=== PATIENT | female | born 1965 | race Caucasian/White ===

== ENCOUNTER → 2016-10-30 | Outpatient (CLI) | payer BC ==
[~2016-10-30] MED LIST: ALBUTEROL2.5 MG/NEB IN; ASPI-COR81 M1 PO; ASPIRIN EC81 MG PO; BUMETANIDE1 MG PO; CARISOPRODOL 3350 MG PO; CARVEDILOL 1212.5 MG PO; CIPROFLOXACIN500 MG PO; CLONAZEPAM 1MG T1 MG PO; CLONAZEPAM0.5 M1 PO; CLONAZEPAM1 M1 PO; COUMADIN 5MG TAB5 MG PO; COUMADIN3 MG PO; DILAUDID4 MG PO; ENDOCET 325 MG-1 TA1 PO; FIORICET 325 MG1 TAB PO; HYDROCODONE-APA1 TA2 PO; K-DUR 2020 MEQ PO; KEFLEX 500MG.500 MG PO; LASIX 20MG. TAB20 MG PO; LASIX 40MG. TAB40 MG PO; LEVAQUIN 750 M750 MG PO; LEVAQUIN500 MG PO; LISINOPRIL10 MG PO; LISINOPRIL2.5 MG PO; METHADONE10 MG PO; METHOCARBAMOL750 M1 PO; MICRO-K10 MEQ PO; NEURONTIN100 MG OR; NOVAPLUS L80 MG/0.8 SC; OMNICEF 300 MG300 MG PO; ONDANSETRON4 M1 SL; PERCOCET 325 MG1 TA4 PO; PERCOCET 5/3251 EACH PO; PERCOGESIC EXTR1 TAB PO; PHENERGAN 25MG.25 M1 PO; POTASSIUM CHLO20 ME2 PO; PREDNISONE 20MG20 MG PO; PREDNISONE20 MG PO; PREDNISONE50 MG PO; PREMARIN 0.60.625 MG PO; PREMARIN V0.625 MG/G VG; PROTONIX 40MG T40 MG PO; PROVENTIL0.09 MG/A1 IH; SIMVASTATIN40 MG PO; SOMA350 MG PO; VITAMIN D50000 IU PO; WARFARIN2 MG PO; ZITHROMAX Z-PA250 M1 PO; ZOFRAN ODT8 M1 PO; ZOFRAN4 MG PO
--- NOTE | 2016-10-30 14:56 | RADIOLOGY REPORT PS360 ---
CHEST(2 VIEWS-NOT PORTABLE) ORDERING PHYSICIAN : David Harrison MD PATIENT AGE: 51 years GENDER: Female INDICATION: chest symptoms FALL, LEFT RIB PAIN PROCEDURE: CHEST(2 VIEWS-NOT PORTABLE) COMPARISON: None available FINDINGS: Previous rib films showed fractures involving the left 7 , 8 , 9, 10 th ribs. Small left pleural effusion. No pneumothorax. Mild chronic changes bilaterally but no active disease otherwise. Heart sheldon and mediastinal structures satisfactory. IMPRESSION Left rib fractures involving left 7,, 8, 9, 10th ribs as seen on rib studies. Small left pleural effusion. No pneumothorax nor acute pulmonary findings otherwise
--- NOTE | 2016-10-30 14:58 | RADIOLOGY REPORT PS360 ---
[id number] VIEWS ORDERING PHYSICIAN : David Harrison MD PATIENT AGE: 51 years GENDER: Female INDICATION: FALL, LEFT RIB PAIN Left rib pain fell and shallower laterally left side 1 week ago COPD. TECHNIQUE: Oblique views left RIBS. AP chest including below diaphragm COMPARISON: PA and lateral chest from today FINDINGS Acute left seventh eighth ninth and 10th rib fractures. The appears to involve the lateral/anterior lateral aspect of these ribs. No prominent displacement. Only Slight cortical step-off most evident left eighth rib. No pneumothorax. Small left pleural effusion associated slight blunting left CP angle. . IMPRESSION Fractures of left, 7, 8, 9, 10th ribs Small left pleural effusion. No pneumothorax evident
== END ==
LOC: RAD 13:12
DX: R07.81 Pleurodynia (principal)

== ENCOUNTER → 2017-04-22 | Outpatient (CLI) | payer BC ==
[2017-04-22 13:48] LABS: AMPHETAMINES/METAMPHETAMINES NEGATIVE ng/mL (<1000)
[2017-04-27 03:36] LABS: Alprazolam Negative (Cutoff=100); Benzodiazepines Negative ng/mL (Cutoff=100); Clonazepam Negative (Cutoff=100); Flurazepam Negative (Cutoff=100); Lorazepam Negative (Cutoff=100); Midazolam Negative (Cutoff=100); Temazepam Negative (Cutoff=100); Triazolam Negative (Cutoff=100)
== END ==
LOC: LAB 13:22
PROVIDERS: Emergency Medicine
DX: Z79.899 Other long term (current) drug therapy (principal)
CPT/HCPCS: G0480

== ENCOUNTER 2017-05-04 10:59 | Emergency (ER) | payer BC ==
[~2017-05-04] VITALS: Ht 172.7 cm; Wt 84.4 kg
[2017-05-04 11:34] LABS: LYMPH % 32.9 % (10-50.0)
--- OUTSIDE RECORDS SUMMARY | 2017-05-04 11:36 | External Medical Summary Rpt ---
Author Author [facility] Organization [facility] Address Unknown Phone Unavailable Care Team Providers Care Sports Marketer Name Role Phone ANY, (REF) PCP [phone] Encounter [facility] [place] [id number] Date(s): 01/28/17 - 02/04/17 [facility] [address] [place] [address]- Discharge Disposition: OP Self Care or Home Attending Physician: JOVON SAAVEDRA MD-CAR Admitting Physician: JOVON SAAVEDRA MD-CAR Referring Physician: JOVON SAAVEDRA MD-CAR Reason for Visit CHEST PAIN, UNSPECIFIED Vital Signs No data available for this section Problem List Condition Effective Status Health Informant Dates Status Abnormal Active patient clotting(Con firmed) Chest Active patient pain(Confirm ed) Cholecystect Active patient shayna(Confirme d) COPD(Confirm Active patient ed) Ectopic Active patient (Co nfirmed) Hypertension Active patient (Confirmed) Myocardial Active patient infarction(C onfirmed) Peripheral Active patient vascular disease(Conf irmed) Pneumonia(Co Active patient nfirmed) Stent(Confir Active patient med) Tonsillectom Active patient y(Confirmed) Ulcer(Confir Active patient med) Allergies, Adverse Reactions, Alerts Substance Reaction Severity Status ampicillin Active celecoxib Active codeine Active dihydroergotamin Active e Imitrex Active naproxen Active penicillin V Active potassium penicillins Active prochlorperazine Active rofecoxib Active sulfamethoxazole Active sulfonamides Active tetracycline Active trimethoprim Active valdecoxib Active Medications albuterol1.25 mg, Nebulized Inhalation , Every 4 Hours, As Needed, as needed for wheezing, Refills: 0 furosemide (Lasix 40 mg oral tablet) See Instructions, 1 Tab Oral Daily prn, Refills: 0 methaDONE (methaDONE 10 mg oral tablet) See Instructions, 4 Tab Oral at 8am and 1400, and takes 5 tabs at HS, Refills: 0 simvastatin (simvastatin 40 mg oral tablet) 1 Tab, Oral, At Bedtime, Refills: 0 Results No data available for this section Immunizations No data available for this section Procedures No data available for this section Social History Social History Response Type Smoking Status Current some day smoker Assessment and Plan No data available for this section Hospital Discharge Instructions No data available for this section
--- OUTSIDE RECORDS SUMMARY | 2017-05-04 11:36 | External Medical Summary Rpt ---
Author Author [facility] Organization [facility] Address Unknown Phone Unavailable Care Team Providers Care Mixing Plant Operator Name Role Phone ANY, (REF) PCP [phone] [facility] [place] [id number] Date(s): 01/03/17 - 01/18/17 [facility] [address] [place] [address]- Discharge Disposition: OP Self Care or Home Attending Physician: JOVON SAAVEDRA MD-CAR Admitting Physician: JOVON SAAVEDRA MD-CAR Referring Physician: JOVON SAAVEDRA MD-CAR Reason for Visit R07.9 R06.02 Vital Signs No data available for this [...]
--- OUTSIDE RECORDS SUMMARY | 2017-05-04 11:36 | External Medical Summary Rpt ---
Author Author [facility] Organization [facility] Address Unknown Phone Unavailable Care Team Providers Care Stage Manager Name Role Phone ANY, (REF) PCP [phone] Encounter [facility] [place] [id number] Date(s): 01/28/17 - 02/04/17 [facility] [address] [place] [address]- Discharge Disposition: OP Self Care or Home [...]
--- OUTSIDE RECORDS SUMMARY | 2017-05-04 11:36 | External Medical Summary Rpt ---
Author Author [facility] Organization [facility] Address Unknown Phone Unavailable Care Team Providers Care Termite Control Technician Name Role Phone ANY, (REF) PCP [phone] Encounter [facility] [place] [id number] Date(s): 01/03/17 - 01/18/17 [facility] [address] [place] [address]- Discharge Disposition: OP Self Care or Home Attending Physician: JOVON SAAVEDRA MD-CAR Admitting Physician: JOVON SAAVEDRA MD-CAR Referring Physician: JOVON SAAVEDRA MD-CAR Reason for Visit R07.9 R06.02 Vital Signs No data available for this section Problem List Condition Effective Status Health Informant Dates Status Abnormal Active patient clotting(Con firmed) Chest Active patient pain(Confirm ed) Cholecystect Active patient sahyna(Confirme d) COPD(Confirm Active patient ed) Ectopic Active [...]
--- OUTSIDE RECORDS SUMMARY | 2017-05-04 11:38 | External Medical Summary Rpt ---
Author Author , [facility] Address Unknown Phone [email or web address] Care Team Providers Care Checking Department Supervisor Name Role Phone Isabela Foster MD, Unavailable Unavailable Isabela Salazar MD, Unavailable Unavailable Alona Salazar MD Purpose Continuity of Care Document - 09-07-2013 through 2016 Problems Code Diagnosis DOS Provider Status 782.3 789.01 789.07 [id number] [facility] E87.6 HYPOKALEMIA J18.9 PNEUMONIA, UNSPECIFIED ORGANISM J20.9 ACUTE BRONCHITIS, UNSPECIFIED J40 BRONCHITIS, NOT SPECIFIED ACUTE OR CHRONIC J44.1 CHRONIC OBSTRUCTIVE PULMONARY DISEASE W (ACUTE) EXACERBATIO N J45.909 UNSPECIFIED ASTHMA, UNCOMPLICAT ED R07.89 OTHER CHEST PAIN R10.11 RIGHT UPPER QUADRANT PAIN R11.10 VOMITING, UNSPECIFIED S63.501A UNSPECIFIED SPRAIN OF RIGHT WRIST, INITIAL ENCOUNTER S83.92XA SPRAIN OF UNSPECIFIED SITE OF LEFT KNEE, INITIAL ENCOUNTER Allergies, Adverse Reactions, Alerts Type Drug Allergy Adverse Reaction to Substance Substance Reaction Severity Penicillin Unknown Unknown SULFA (sulfonamide) Unknown Unknown Naproxen Unknown Unknown Tetracycline Unknown Unknown Ampicillin Unknown Unknown Codeine Unknown Unknown Prochlorperazine Unknown Unknown Penicillin V Unknown Unknown Trimethoprim Unknown Unknown Dihydroergotamine Unknown Unknown Sulfamethoxazole Unknown Unknown Ketorolac Unknown Unknown Sumatriptan Unknown Unknown Celecoxib Unknown Unknown Rofecoxib Unknown Unknown Valdecoxib Unknown Unknown Medications Na ND Rx Da Fi Fi Am Da Di Ph RX Ph St me C No te ll ll ou ys ag ar # ys at rm s nt no ma ic us Or Da si cy ia de te s n re d SO 00 12 0 No DI 40 -0 UM 97 1- Lo 98 20 ng CH 30 13 er LO 9 RI Ac DE ti ve 0. 9% SO ELENA TI ON Sa 63 12 0 No li 80 -0 ne 70 1- Lo 10 20 ng Fl 07 13 er us 5 h Ac 10 ti ML ve Sy ri ng e DI 00 12 0 No AZ 40 -0 EP 91 1- Lo AM 27 20 ng 33 13 er 10 2 Ac MG ti /2 ve ML CA RP UJ EC T IP 00 12 0 No RA 48 -0 T- 70 1- Lo AL 20 20 ng BU 10 13 er T 1 0. Ac 5- ti 3( ve 2. 5) MG /3 ML 66 12 0 No PI 55 -0 RI 30 1- Lo N 00 20 ng 32 10 13 er 5 1 MG Ac ti TA ve BL ET NI 00 12 0 No TR 07 -0 OS 10 1- Lo TA 41 20 ng T 81 13 er 0. 3 4 Ac MG ti ve TA BL ET SL LE 25 12 0 No VO 02 -0 FL 10 1- Lo OX 13 20 ng AC 28 13 er IN 3 Ac 75 ti 0 ve MG /1 50 ML -D 5W Vital Signs 09-09-2013 23:06 Name Value Interpretat Reference Comment ion Range Body 98.6 [degF] Temperature BP 111 mm[Hg] Diastolic BP Systolic 174 mm[Hg] Heart 118 /min Rate/Pulse O2% 98 % Respiratory 20 /min Rate 09-09-2013 19:50 Name Value Interpretat Reference Comment ion Range Body 98.6 [degF] Temperature 09-09-2013 17:59 Name Value Interpretat Reference Comment ion Range BP 79 mm[Hg] Diastolic BP Systolic 134 mm[Hg] Heart 141 /min Rate/Pulse Respiratory 24 /min Rate 09-09-2013 17:22 Name Value Interpretat Reference Comment ion Range O2% 98 % 09-07-2013 07:01 Name Value Interpretat Reference Comment ion Range BP 90 mm[Hg] Diastolic BP Systolic 130 mm[Hg] Heart 100 /min Rate/Pulse O2% 95 % Respiratory 20 /min Rate Results Labs Lab Lab Date Result Refere Interp Status Commen Order Detail nces retati t Range on Drugs identified in Urine by Screen method (04-22-2017 09:30) Ampheta NEGATIV <1000 complet mine 017 E ed [Presen 09:30 ce] in Urine by Screen method 11 POSITIV <50 Abnorma complet oxy 017 E l ed delta-9 09:30 tetrahy drocann abinol [Presen ce] in Unspeci fied specime n URINALYSIS/COMPLETE (09-09-2013 19:50) URINE YELLOW YELLOW complet COLOR 013 ed 19:50 URINE CLEAR CLEAR complet APPEARA 013 ed NCE 19:50 URINE NEGATIV NEG complet GLUCOSE 013 E ed - 19:50 DIPSTIC K URINE 1+ NEG complet BILIRUB 013 ed IN - 19:50 DIPSTIC K URINE TRACE NEG complet KETONE 013 mg/dL ed 19:50 URINE 1.025 1.005-1 complet SPECIFI 013 UNK .030 ed C 19:50 GRAVITY URINE TRACE-I NEG complet BLOOD 013 NTACT ed 19:50 URINE 6.0 UNK 5.0-8.5 complet PH 013 ed 19:50 URINE 2+ NEG complet PROTEIN 013 mg/dL ed - 19:50 DIPSTIC K URINE 0.2 NEG complet UROBILI 013 E.U./dL ed NOGEN - 19:50 DIPSTIC K URINE NEGATIV NEG complet NITRATE 013 E ed - 19:50 DIPSTIC K URINE NEGATIV NEG complet LEUK 013 E ed ESTERAS 19:50 E URINE 3-5 0 complet RBC 013 rbc/hpf ed 19:50 URINE 20-50 O complet WBC 013 wbc/hpf ed 19:50 URINE 10-20 NONE complet WHITE 013 #/lpf ed BLOOD 19:50 CELL CAST COMPREHENSIVE METABOLIC PANEL (09-09-2013 17:50) Glucose 183 74-106 complet 013 mg/dL ed Bld-mCn 17:50 c BUN 31 7-18 complet Bld-mCn 013 mg/dL ed c 17:50 Creat 1.1 0.6-1.0 complet SerPl-m 013 mg/dL ed Cnc 17:50 Creat 79 50-200 complet Cl 013 ML/MIN ed predict 17:50 ed SerPl C-G-vRa te GFR/BSA 53 59- complet .pred 013 ML/MIN ed SerPl 17:50 Schwart z-vRate Sodium 138 136-145 complet SerPl-s 013 mmoL/L ed Cnc 17:50 Potassi 3.4 3.5-5.1 complet um 013 mmoL/L ed SerPl-s 17:50 Cnc Chlorid 102 98-107 complet e 013 mmoL/L ed SerPl-s 17:50 Cnc CO2 21 21.0-32 complet SerPl-s 013 mmoL/L .0 ed Cnc 17:50 Calcium 9.3 8.5-10. complet 013 mg/dL 1 ed SerPl-m 17:50 Cnc Prot 8.8 6.4-8.2 complet SerPl-m 013 gm/dL ed Cnc 17:50 Albumin 3.4 3.4-5.0 complet 013 gm/dL ed SerPl-m 17:50 Cnc Globuli 5.4 1.3-3.2 complet n 013 gm/dL ed Ser-mCn 17:50 c Albumin 0.6 UNK 1.1-1.8 complet /Glob 013 ed SerPl-m 17:50 Rto Bilirub 0.7 0.2-1.0 complet 013 mg/dL ed SerPl-m 17:50 Cnc AST 25 U/L 15-37 complet SerPl-c 013 ed Cnc 17:50 ALT 28 U/L 30-65 complet SerPl-c 013 ed Cnc 17:50 ALP 146 U/L 50-136 complet SerPl-c 013 ed Cnc 17:50 TROPONIN I (09-09-2013 17:50) TROPONI 0.31 0.00-0. complet N I 013 ng/mL 06 ed 17:50 Ethanol Bld-mCnc (09-09-2013 17:50) Ethanol 0 mg/dL 0-99 complet 013 ed Bld-mCn 17:50 c CBC with AUTO DIFF (09-09-2013 17:50) WBC # 22.5 4.8-10. High complet Bld 013 K/MM3 8 alert ed Auto 17:50 RBC # 09-09- 4.84 4.2-5.4 complet Bld 013 M/mm3 ed Auto 17:50 Hgb 14.3 12.2-16 complet Bld-mCn 013 g/dL .2 ed c 17:50 Hct Fr 41.8 % 37.0-47 complet Bld 013 .0 ed 17:50 MCV RBC 86.3 fl 82.2-97 complet 013 .8 ed 17:50 MCH RBC 29.5 pg 27-31.2 complet Qn 013 ed Auto 17:50 MEAN 34.1 31.8-35 complet CORPUSC 013 g/dl .4 ed ULAR 17:50 HGB CONC RDW RBC 17.3 % 11.5-17 complet Auto 013 .5 ed 17:50 Platele 476 142-424 complet t Bld 013 K/mm3 ed Ql 17:50 Manual MEAN 7.9 fl 7.4-10. complet PLATELE 013 4 ed T 17:50 VOLUME Granulo 83.5 % 37.0-80 complet cytes 013 .0 ed Fr Bld 17:50 Auto LYMPH % 11.8 % 10-50.0 complet 013 ed 17:50 Monocyt 3.6 % 1.7-9.3 complet es Fr 013 ed Bld 17:50 Auto Eosinop 0.9 % 0.1-12. complet hil Fr 013 0 ed Bld 17:50 Auto Basophi 0.1 % 0.1-2.0 complet ls Fr 013 ed Bld 17:50 Auto Granulo 18.8 1.8-7.8 complet cytes # 013 K/mm3 ed Bld 17:50 Auto Lymphoc 2.7 0.7-4.5 complet ytes Fr 013 K/mm3 ed Bld 17:50 Auto Monocyt 0.8 0.1-1.0 complet es # 013 K/mm3 ed Bld 17:50 Auto Eosinop 0.2 0.0-0.4 complet hil # 013 K/mm3 ed Bld 17:50 Auto Basophi 0.0 0-0.2 complet ls # 013 K/MM3 ed Bld 17:50 Auto Procedures Procedure DOS Code Location Performer Comment APPLICATI 93.54 Isabela Abdi MD SPLINT Encounters Encounter Start End Date Code Location Performer Type Date Emergency AAKASH Harrison MD (ER) 3 17:40 3 23:10 [facility] Emergency AAKASH Foster MD (ER) 3 06:48 3 07:16 [facility]
--- OUTSIDE RECORDS SUMMARY | 2017-05-04 11:38 | External Medical Summary Rpt ---
Author Author , TE [facility] TE Address Unknown Phone [email or web address] Care Team Providers Care Paper Machine Operator Name Role Phone Isabela Foster MD, Unavailable Unavailable Isabela Salazar MD, Unavailable Unavailable Alona Salazar MD Purpose Continuity of Care Document - 09-07-2013 through 2016 Problems Code Diagnosis DOS Provider Status 782.3 789.01 789.07 [id number] [facility] E87.6 HYPOKALEMIA J18.9 PNEUMONIA, UNSPECIFIED ORGANISM J20.9 [...] Harrison MD (ER) 3 17:40 3 23:10 [facility] Emergency AAKASH Foster MD (ER) 3 06:48 3 07:16 [facility]
--- OUTSIDE RECORDS SUMMARY | 2017-05-04 11:39 | External Medical Summary Rpt ---
Author Author [facility] Organization [facility] Address Unknown Phone Unavailable Purpose Continuity of Care Document - through 2016
--- OUTSIDE RECORDS SUMMARY | 2017-05-04 11:39 | External Medical Summary Rpt ---
Author Author [facility], [facility] Organization [facility] [employer] Address Unknown Phone Unavailable Results Benzodiazepines Confirm, Urine Observa Value Referen Units Interpr Notes Date tion ce etation Range Benzodi Negativ Cutoff= ng/mL No No Apr 22 azepine e 100 informa informa 2017 s tion in tion in 9:30 AM [Presen source source ce] in data data Urine Alprazo Negativ Cutoff= No No No Apr 22 tobias e 100 informa informa informa 2016 [Presen tion in tion in tion in 9:30 AM ce] in source source source Urine data data data Clonaze Negativ Cutoff= No No No Apr 22 christine e 100 informa informa informa 2016 [Presen tion in tion in tion in 9:30 AM ce] in source source source Urine data data data Temazep Negativ Cutoff= No No No Apr 22 am e 100 informa informa informa 2016 [Presen tion in tion in tion in 9:30 AM ce] in source source source Urine data data data by Confirm method Triazol Negativ Cutoff= No No No Apr 22 am e 100 informa informa informa 2016 [Presen tion in tion in tion in 9:30 AM ce] in source source source Urine data data data Midazol Negativ Cutoff= No No No Apr 22 am e 100 informa informa informa 2016 [Presen tion in tion in tion in 9:30 AM ce] in source source source Urine data data data by Confirm method Nordiaz Negativ Cutoff= No No No Apr 22 epam e 100 informa informa informa 2016 [Presen tion in tion in tion in 9:30 AM ce] in source source source Urine data data data Please Comment . No No Drug-te Apr 22 Note: informa informa st 2017 tion in tion in results 9:30 AM source source should data data be interpr eted in the context of clinica linform ation. Patient metabol ic variabl es, specifi c drug medicinal chemist ry, andspec imen charact eristic s can affect test outcome . Technic nolanu ltation is availab le if a test result is inconsi stent with anexpec elisabet outcome . (email- alysa hoang [email or web address] or call [employer] [phone] )Drug brands, if listed herein, are tradema rks of their respect jeanie kinsey.Perf ormed at: - [facility] [id number] [place], [place] [id number]Lab Directo r: David Suero MD, Phone: [phone] Oxazepa Negativ Cutoff= No No No Apr 22 m e 100 informa informa informa 2016 [Presen tion in tion in tion in 9:30 AM ce] in source source source Urine data data data Fluraze Negativ Cutoff= No No No Apr 22 christine e 100 informa informa informa 2016 [Presen tion in tion in tion in 9:30 AM ce] in source source source Urine data data data Lorazep Negativ Cutoff= No No No Apr 22 am e 100 informa informa informa 2016 [Presen tion in tion in tion in 9:30 AM ce] in source source source Urine data data data Drugs identified in Urine by Screen method Observa Value Referen Units Interpr Notes Date tion ce etation Range Positive urine drug screen samples are stored for 7 days. Contact the Lab if confirmation of positives is needed. Ampheta NEGATIV <1000 ng/mL No No Apr 22 mine E informa informa 2016 [Presen tion in tion in 9:30 AM ce] in source source Urine data data by Screen method Barbitura <200 ng/mL No No Apr 22 lloyd informati informati 2016 9:30 [Mass/vol on in on in AM ume] in source source Urine by data data Screen method Benzodiaz 200 ng/mL ng/mL No No Apr 22 epines informati informati 2016 9:30 [Mass/vol on in on in AM ume] in source source Serum or data data Plasma by Screen method Cocaine <300 ng/g No No Apr 22 [Mass/vol informati informati 2017 9:30 ume] in on in on in AM Unspecifi source source ed data data specimen Methadone <300 ng/mL No No Apr 22 informati informati 2016 9:30 [Mass/vol on in on in AM ume] in source source Unspecifi data data ed specimen Opiates <300 ng/mL No No Apr 22 [Mass/vol informati informati 2017 9:30 ume] in on in on in AM Unspecifi source source ed data data specimen Phencycli <25 ng/mL No No Apr 14 dine informati informati 2017 9:30 [Mass/vol on in on in AM ume] in source source Unspecifi data data ed specimen 11-Hydr POSITIV <50 ng/mL Abnorma This is Apr 22 oxy E l an 2017 delta-9 UNCONFI 9:30 AM RMED tetrahy result. drocann This abinol result [Presen is for ce] in medical Unspeci purpose fied s specime and/or n treatme nt only. INR in Blood by Coagulation assay Observa Value Referen Units Interpr Notes Date tion ce etation Range INR in 0.9 - 1.1 No High Results Mar 24 Blood by informati sent to: 2017 9:30 Coagulati on in [place] AM on assay source Tyrell RIBERA 03/24/17 [id number] palomino Pharmackelsi t recommend ation for Warfarint herapy is: INR BY FINGERSTI CK IS 1.6 TODAY. PATIENTRE CENTLY STARTED SYMBICORT AND LEVALBUTE ROL. HER INR WASELEVAT ED AT HOME SO SHE HELD 3 DOSES. RECOMMEND CONTINUIN G3 MG DAILY AT THIS TIME. FOR DETAILED INFORMATI ON-PLEASE REVIEW PROGRESS NOTEI N THE ASSESSMEN TS AND ANTICOAGU LATION CLINIC SECTIONAN TICOAGULA TION CLINIC IN PCI/CLINI SILVER REVIEWIND ICATION INR RANGETHER APY FOR DVT, PE, ATRIAL FIB; 2.0 - 3.0PROPHY LAXIS FOR VTETHERAP Y FOR MECHANICA L HEART 2.5 - 3.5VALVE; PREVENTIO N OF SYSTEMICE MBOLISM SECONDARY TO AMI
--- OUTSIDE RECORDS SUMMARY | 2017-05-04 11:39 | External Medical Summary Rpt ---
Demographics Preferred Language Armenian Marital Status Unknown Sikh Affiliation Unknown Race Unknown Ethnic Group Unknown Author Author , BETH TIWARI Address Unknown Phone Immunization Unable to retrieve immunization data due to connection failure with Immunization Registry. Please try again later.
--- OUTSIDE RECORDS SUMMARY | 2017-05-04 11:39 | External Medical Summary Rpt ---
[...] metabol ic variabl es, specifi c drug lab pack chemist ry, andspec imen charact eristic s can affect test outcome . Technic nolanu ltation is availab le if a test result is inconsi stent with anexpec elisabet outcome . (email- alysa [email or web address] [email or web address] or call [employer] [phone] )Drug brands, if listed herein, are tradema rks of their respect jeanie kinsey.Perf ormed at: - [facility] [id number] [place], [place] [id number]Lab Directo r: David Suero MD, Phone: [phone] Oxazepa Negativ Cutoff= No No No Apr [...]
--- OUTSIDE RECORDS SUMMARY | 2017-05-04 11:39 | External Medical Summary Rpt ---
Demographics Preferred Language French Marital Status Unknown Religion Affiliation Unknown Race Unknown Ethnic Group Unknown Author Author , BETH TIWARI Address Unknown Phone Immunization Unable to retrieve immunization data due to connection failure with Immunization Registry. Please try again later.
[2017-05-04 11:54] LABS: URINE BILIRUBIN - DIPSTICK NEGATIVE (NEG); URINE BLOOD NEGATIVE (NEG)
[2017-05-04 12:01] LABS: URINE SQUAMOUS CELLS OCC #/hpf (0-5)
[2017-05-04 12:22] LABS: NEUTROPHILS 55 % (42-76)
--- NOTE | 2017-05-04 12:23 | Emergency Room Report ---
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 N Clinical Suspician of Infection? N Mental Status: 1 - Regular (Normal Baseline) Sepsis Risk:Low Sepsis Risk Have you (or family members/close friends) recently traveled outside the [place]? N If Yes, where/when: Have you had exposure to infectious disease within the past month? N TB? Other? Specify: Source patient, RN notes reviewed, family, RN/MD Exam Limitations no limitations Comment This is a 51-year-old female patient with known history of chronic pancreatitis arriving to the emergency room with upper abdominal pain, a, associated with fine tremors of her fingers. Patient has any recent travel or exposure to sick contacts. ALLERGIES Coded Allergies: metoclopramide (From REGLAN) (Severe, I-RASH 04/02/16) NSAIDS (Non-Steroidal Anti-Inflamma (Mild, 04/02/16) Penicillins (Mild, 04/02/16) Sulfa (Sulfonamide Antibiotics) (Mild, 04/02/16) Tetracyclines (Mild, 04/02/16) codeine (Mild, 04/02/16) ketorolac (From TORADOL) (Mild, 04/02/16) naproxen (Mild, 04/02/16) prochlorperazine (From COMPAZINE) (Mild, 04/02/16) rofecoxib (From VIOXX) (Mild, 04/02/16) Home Medications Active Scripts OXYCODONE HCL/ACETAMINOPHEN (Percocet 7.5-325 MG Tablet) 1 TAB PO QIDP PRN pain #120 TAB Prov: 10/13/15 Reported Medications ALBUTEROL (Proventil Hfa Inhaler) 2 PUFF IH Q6H PRN #1 CAN Lisinopril 10 MG PO DAILY #30 TAB Clonazepam (Clonazepam 0.5MG) 0.5 MG PO TIDP PRN ANXIETY Carvedilol (Carvedilol 12.5MG) 12.5 MG PO BID Gabapentin (Neurontin) 600 MG OR TID Potassium Chloride (K-Dur) 20 MEQ PO DAILYP PRN SUPPLEMENT #30 Ondansetron (Zofran Odt) 8 MG PO WARFARIN SOD (Coumadin) 3 MG PO DAILY Simvastatin (Simvastatin 40MG Tab) 80 MG PO QHS Aspirin (Aspi-Cor) 81 MG PO DAILY Pantoprazole Sodium (Protonix 40MG TAB) 40 MG PO DAILY Promethazine Hydrochloride (Phenergan 25MG Tab) 25 MG PO Q6HP PRN N/V ERGOCALCIFEROL (VITAMIN D2) (Vitamin D2) 50,000 IUNITS PO WEEKLY #4 Methocarbamol 750 MG PO TID #90 History Medical History General CAD? No Angina: No [place]: Yes Hypertension? Yes Hyperlipidemia? Yes CHF? No DVT? Yes PE? No COPD? Yes Asthma? Yes Anemia? No GERD? No Gastric ulcers? No GI Bleed? No Hernia? Yes Thyroid Problems? No Hypothyroidism? No CVA? No Seizures? No Diabetes? No Insulin Dependent: No Insulin Pump: No Home FSBS? No Renal Insuffiency? No End Stage Renal Disease? No UTI? Yes Stones? Yes BPH? No GB Disease: Yes Nephritic Syndrome? No Asplenia? No Hepatitis? No Sickle Cell Disease? No Arthritis? No Migraines? No Cataracts? No Glaucoma? No MRSA? No HIV? No TB? No Anxiety? Yes Depression? Yes Cancer? No More? 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/A Family History Family Hx Diabetes Yes CAD Yes Hypertension Yes Hyperlipidemia Yes Cancer Yes TB No Social History Smoking Hx Smoker: Current Every Day Smoker Tobacco: Yes Type Cigarettes Packs/day < 1 Pack Alcohol Alcohol: No Review of Systems All Other Systems Reviewed and Negative Gastrointestinal abdominal pain, nausea, vomiting Psychiatric/Neurological other (tremors of the fingers) Physical Exam Vital Signs Vital Signs Date Time Temp Pulse Resp B/P Pulse O2 O2 Flow FiO2 Ox Delivery Rate 05/04 1236 98.1 88 18 154/98 98 05/04 1143 88 18 98 05/04 1119 20 05/04 1102 98.1 84 18 160/109 98 General Appearance normal appearance, WD/WN, mild distress Respiratory Status Yes: trachea midline, chest symmetrical, non tender chest. No: respiratory distress. Lung Sounds bilateral: normal breath sounds, lungs clear. 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 No Comment Upon reevaluation patient appears making stable, clinically improving. Advised patient to force clear fluids, advance diet as tolerated, till pain free. Results/Orders Laboratory Tests 05/04/17 1140: Urine Color YELLOW, Urine Appearance CLEAR, Urine pH 6.0, Ur Specific [place] 1.015, Urine Protein NEGATIVE, Urine Ketones NEGATIVE, Urine Blood NEGATIVE, Urine Nitrate NEGATIVE, Urine Bilirubin NEGATIVE, Urine Urobilinogen 0.2, Ur Leukocyte Esterase NEGATIVE, Urine RBC NONE, Urine WBC NONE, Ur Squamous Epith Cells OCC, Urine Bacteria TRACE, Urine Glucose NEGATIVE 05/04/17 1110: Phosphorus 3.5, Magnesium 1.8 05/04/17 1110: Sodium 140, Potassium 4.4, Chloride 103, Carbon Dioxide 32, BUN 27 H, Creatinine 1.2 H, Estimated Creat Clear 75, Estimated GFR (MDRD) 48 L, Glucose 92, Calcium 8.7, Total Bilirubin 0.2, AST 13 L, ALT 23, Alkaline Phosphatase 98 , Total Protein 7.4, Albumin 3.3 L, Globulin 4.1 H, Albumin/Globulin Ratio 0.8 L, Amylase 40, Lipase 129, PT 13.5 H, INR 1.25 H, APTT 28.5, WBC 15.2 H, RBC 4.45, Hgb 13.4, Hct 41.8, MCV 94.0, RDW 15.3, Plt Count 263, MPV 7.4, Gran % 60.2, Gran # 9.1 H, Total Counted 100, Lymphocytes % 32.9, Monocytes % 5.0, Eosinophils % 1.5, Basophils % 0.4, Neutrophils 55, Lymphocytes (Manual) 35, Lymphocytes # 5.0 H, Monocytes (Manual) 8, Monocytes # 0.8, Eosinophils # 0.2, Eosinophils # (Manual) 2, Basophils # 0.1, Platelet Estimate MOD INCREASE, PUBS MCHC 32.2, MCH 30.2 Current Medication Orders Sig/Марина Start time Last Medication Dose Route Stop Time Status Admin Morphine Sulfate 0 .STK-MED ONE 05/04 111 DCr .ROUTE Ondansetron HCl 0 .STK-MED ONE 05/04 1117 DC .ROUTE Sodium Chloride 1,000 ML .STK-MED ONE 05/04 1117 DC IV Morphine Sulfate 4 MG ONCE ONE 05/04 1115 DCr 05/04 IV 05/04 1116 1119 Ondansetron HCl 4 MG ONCE ONE 05/04 1115 DC 05/04 IV 05/04 1116 1118 Sodium Chloride 1,000 ML .Q1H 05/04 1115 DCD 05/04 IV 05/04 1308 1118 Sodium Chloride 10 ML PRN PRN 05/04 1115 DCD IV 05/05 1108 Sodium Chloride 10 ML PRN PRN 05/04 1115 DCD IV 05/05 1108 Orders Procedure Date/time Status PHOSPHORUS 05/04 1146 Complete MAGNESIUM 05/04 1146 Complete PARTIAL THROMBOPLASTIN TIME 05/04 1125 Complete PROTHROMBIN TIME 05/04 1125 Complete DIFFERENTIAL-WBC 05/04 1110 Complete IV SALINE LOCK 05/04 1109 Active URINALYSIS/COMPLETE 05/04 1109 Complete LIPASE 05/04 1109 Complete COMPLETE METABOLIC PANEL 05/04 1109 Complete CBC WITH AUTO DIFF 05/04 1109 Complete AMYLASE 05/04 1109 Complete Departure Departure Time of Disposition 1221 Disposition DC Home or Self Care(routine) Clinical Impression Primary Impression: Chronic pancreatitis Qualifiers: Pancreatitis type: unspecified pancreatitis type Qualified Code: K86.1 - Other chronic pancreatitis Condition STABLE Referrals Hunter RIBERA,David Kennedy (Family) Patient Instructions Chronic Pancreatitis, Pancreatitis (Alternative Therapy) Additional Instructions Please remain on clear liquids till pain completely resolved, advance diet as tolerated. Avoid greasy meals, tehy will trigger more pancreatitis flare ups. Discharge Counseling Counseled pt/family regarding diagnosis, test results, medications/RX, home care, follow up needs Comment Please remain on clear liquids till pain completely resolved, advance diet as tolerated. Avoid greasy meals, tehy will trigger more pancreatitis flare ups. ED Critical Care Critical Care No at [id number]
[2017-05-04 12:36] VITALS: BP 154/98
[2017-05-04 13:05] LABS: HEMOGLOBIN 13.4 g/dL (12.2-16.2)
== END 2017-05-04 12:37 | disposition home or self-care (01) ==
LOC: ER 10:59
PROVIDERS: Emergency Medicine
DX: K86.1 Other chronic pancreatitis (principal); I10 Essential (primary) hypertension; E78.5 Hyperlipidemia, unspecified; Z88.2 Allergy status to sulfonamides; Z88.8 Allergy status to other drugs, medicaments and biological substances; Z79.82 Long term (current) use of aspirin; Z79.01 Long term (current) use of anticoagulants; Z79.899 Other long term (current) drug therapy
CPT/HCPCS: J2405

== ENCOUNTER 2017-07-01 17:14 | Observation (INO) | payer BC ==
[~2017-07-01] VITALS: Ht 172.7 cm; Wt 90.7 kg
[~2017-07-01 17:14] MED LIST changes: +CREON1 ECC PO; +PERCOCET1 TA1 PO
[2017-07-01 17:19] VITALS: BP 120/72
[2017-07-01 17:50] LABS: URINE BLOOD NEGATIVE (NEG)
--- NOTE | 2017-07-01 17:51 | Emergency Room Report ---
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 N Clinical Suspician of Infection? N Mental Status: 1 - Regular (Normal Baseline) Sepsis Risk:Low Sepsis Risk Have you (or family members/close friends) recently traveled outside the [place]? N If Yes, where/when: Have you had exposure to infectious disease within the past month? N TB? Other? Specify: Comment The patient complains of RIGHT sided flank pain that began today. She has had nausea and vomiting. Denies abdominal pain or diarrhea. Recent upper respiratory infection, otherwise has not been ill. She has chronic back pain for years, but this is distinctly different. Denies history of kidney stones. ALLERGIES Coded Allergies: metoclopramide (From REGLAN) (Severe, I-RASH 04/02/16) NSAIDS (Non-Steroidal Anti-Inflamma (Mild, 04/02/16) Penicillins (Mild, 04/02/16) Sulfa (Sulfonamide Antibiotics) (Mild, 04/02/16) Tetracyclines (Mild, 04/02/16) codeine (Mild, 04/02/16) ketorolac (From TORADOL) (Mild, 04/02/16) naproxen (Mild, 04/02/16) prochlorperazine (From COMPAZINE) (Mild, 04/02/16) rofecoxib (From VIOXX) (Mild, 04/02/16) Home Medications Reported Medications ALBUTEROL (Proventil Hfa Inhaler) 2 PUFF IH Q6H PRN #1 CAN Lisinopril 10 MG PO DAILY #30 TAB Carvedilol (Carvedilol 12.5MG) 12.5 MG PO BID Gabapentin (Neurontin) 600 MG OR TID Potassium Chloride (K-Dur) 20 MEQ PO DAILYP PRN SUPPLEMENT #30 Clonazepam (Clonazepam 0.5MG) 0.5 MG PO QID Ondansetron (Zofran Odt) 8 MG PO WARFARIN SOD (Coumadin) 3 MG PO DAILY OXYCODONE HCL/ACETAMINOPHEN (Percocet 10-325 MG Tablet) 1 TAB PO TID LIPASE/PROTEASE/AMYLASE (Creon Dr 12,000 Units Capsule) 2 ECC PO ACHS Simvastatin (Simvastatin 40MG Tab) 80 MG PO QHS Aspirin (Aspi-Cor) 81 MG PO DAILY Pantoprazole Sodium (Protonix 40MG TAB) 40 MG PO DAILY Promethazine Hydrochloride (Phenergan 25MG Tab) 25 MG PO Q6HP PRN N/V ERGOCALCIFEROL (VITAMIN D2) (Vitamin D2) 50,000 IUNITS PO WEEKLY #4 Methocarbamol 750 MG PO TID #90 History Medical History General CAD? No Angina: No [place]: Yes Hypertension? Yes Hyperlipidemia? Yes CHF? No DVT? Yes PE? No COPD? Yes Asthma? Yes Anemia? No GERD? No Gastric ulcers? No GI Bleed? No Hernia? Yes Thyroid Problems? No Hypothyroidism? No CVA? No Seizures? No Diabetes? No Insulin Dependent: No Insulin Pump: No Home FSBS? No Renal Insuffiency? No End Stage Renal Disease? No UTI? Yes Stones? Yes BPH? No GB Disease: Yes Nephritic Syndrome? No Asplenia? No Hepatitis? No Sickle Cell Disease? No Arthritis? No Migraines? No Cataracts? No Glaucoma? No MRSA? No HIV? No TB? No Anxiety? Yes Depression? Yes Cancer? No More? 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 Musculoskeletal back pain Physical Exam Vital Signs Vital Signs Date Time Temp Pulse Resp B/P Pulse O2 O2 Flow FiO2 Ox Delivery Rate 07/01 2005 84 20 122/77 91 07/01 1941 20 07/01 1809 20 07/01 1719 98.0 83 20 120/72 95 General Appearance mild distress Eye Exam - bilateral eye normal exam, bilateral eye PERRL, bilateral eye EOMI Ear, Nose, Throat hearing grossly normal, normal ENT inspection Neck normal inspection, non-tender, supple, full range of motion Respiratory Status Yes: trachea midline, chest symmetrical, non tender chest. No: respiratory distress. Lung Sounds bilateral: normal breath sounds, lungs clear. Cardiovascular normal exam, regular rate/rhythm, no peripheral edema, no gallop, no JVD, no murmur, no rub, normal peripheral pulses Peripheral Pulses Pulses normal Yes Gastrointestinal normal bowel sounds, soft, no organomegaly, no guarding, no rebound, tenderness (Minimal, diffuse) Back normal inspection, CVA tenderness (R) Extremities non-tender, normal range of motion, normal inspection Neurologic alert, normal exam, oriented x 3 Mental status normal mood/affect Skin intact, normal color, warm/dry Medical Decision Making LABS/Meds/Orders Pt receiving controlled substance in ED? Yes Jordy was queried for this patient? Yes Comment [id number] rxs. last rxs gabapentin on 06/22/17, clonazepam on 06/16/17, 90 percocet 10mg on 06/02/17. Results/Orders Laboratory Tests 07/01/17 1750: Amylase 28, Lipase 81 07/01/17 1750: Sodium 136, Potassium 4.0, Chloride 103, Carbon Dioxide 24, BUN 22 H, Creatinine 1.5 H, Estimated Creat Clear 64, Estimated GFR (MDRD) 37 L, Glucose 153 H, Calcium 9.1, Total Bilirubin 0.4, AST 10 L, ALT 19, Alkaline Phosphatase 131 H, Total Protein 8.2, Albumin 3.8, Globulin 4.4 H, Albumin/ Globulin Ratio 0.9 L, PT Pending, INR Pending, WBC 15.2 H, RBC 5.24, Hgb 16.0, Hct 47.5 H, MCV 90.7, RDW 14.6, Plt Count 345, MPV 7.3 L, Gran % 74.5, Gran # 11.3 H, Total Counted 100, Lymphocytes % 18.1, Monocytes % 5.6, Eosinophils % 1.3, Basophils % 0.4, Neutrophils 78 H, Lymphocytes (Manual) 15, Lymphocytes # 2.8, Monocytes (Manual) 5, Monocytes # 0.9, Eosinophils # 0.2, Eosinophils # ( Manual) 2, Basophils # 0.1, Platelet Estimate NORMAL, PUBS MCHC 34.0, MCH 30.8 07/01/171739: Urine Color DK YELLOW, Urine Appearance SL CLOUDY, Urine pH 5.0, Ur Specific [place] >= 1.030, Urine Protein 1+ H, Urine Ketones NEGATIVE, Urine Blood NEGATIVE, Urine Nitrate NEGATIVE, Urine Bilirubin 1+ H, Urine Urobilinogen 1.0, Ur Leukocyte Esterase NEGATIVE, Urine RBC 3-5, Urine WBC 3-5, Ur Squamous Epith Cells TNTC, Urine Bacteria 2+, Hyaline Casts 5-10, Urine Mucus 1+, Urine Glucose NEGATIVE Current Medication Orders Sig/Марина Start time Last Medication Dose Route Stop Time Status Admin Ketorolac 0 .STK-MED ONE 07/01 2012 DCr Tromethamine .ROUTE Hydromorphone HCl 1 MG ONCE ONE 07/01 1945 DCr 07/01 IV 07/01 194 194 Hydromorphone HCl 1 MG ONCE ONE 07/01 1815 DCr 07/01 IV 07/01 1816 1809 Ondansetron HCl 4 MG ONCE ONE 07/01 1815 CAN IV 07/01 181 Hydromorphone HCl 0 .STK-MED ONE 07/01 1805 DCr .ROUTE Ondansetron HCl 4 MG ONCE ONE 07/01 1800 DC 07/01 IV 07/01 1801 1801 Sodium Chloride 1,000 ML .Q1H1M 07/01 1800 DC 07/01 IV 07/01 1900 1801 Sodium Chloride 10 ML PRN PRN 07/01 1800 AC IV 07/02 1758 Ondansetron HCl 0 .STK-MED ONE 07/01 175 DC .ROUTE Sodium Chloride 1,000 ML .STK-MED ONE 07/01 1753 DC IV Sodium Chloride 10 ML PRN PRN 07/01 1745 AC IV 07/02 1740 Orders Procedure Date/time Status DIET-NOTHING BY MOUTH 07/02 B Active Decision to admit 07/[address] ABD & PELVIS W/O CONTRAST 07/[address] ABD/PELVIS REQ 07/01 1759 Active LIPASE 09/22 1759 Complete AMYLASE 07/[address] ABD/PELVIS REQ 07/01 175 Active DIFFERENTIAL-WBC 07/01 175 Complete IV SALINE LOCK 07/01 174 Active CULTURE, URINE 07/01 174 Active URINALYSIS/COMPLETE 07/01 174 Complete CBC WITH AUTO DIFF 07/01 174 Complete CHEM 12 PROFILE 07/01 174 Complete XRAY/CT/US XRAY/CT/US CT abdomen, pelvis Comment CT scan interpreted by ad radiologist. Faxed report received and reviewed: No acute findings. No evidence of urinary tract stone or obstruction. Moderate pneumobilia status post cholecystectomy and probable prior sphincterotomy. This is not an uncommon finding after these procedures however correlation with surgical history is recommended. Progress - 7:30 PM: Patient states no relief from pain medication. Discussed results. 8:00 PM: I have discussed the case with Dr. Harrison who agrees to admit the patient to the hospital. He saw the patient in the emergency department. He requests Levaquin. Departure Departure Disposition Still a Patient Clinical Impression Primary Impression: Right flank pain Secondary Impressions: Dehydration Vomiting Qualifiers: Vomiting type: unspecified Vomiting Intractability: intractable Nausea presence: with nausea Qualified Code: R11.2 - Nausea with vomiting, unspecified Condition STABLE Referrals Hunter RIBERA,David Kennedy (Family) ED Critical Care Critical Care No at 2028
[2017-07-01 17:58] LABS: URINE BILIRUBIN - DIPSTICK 1+ (NEG)
[2017-07-01 18:03] LABS: LYMPH # 2.8 K/mm3 (0.7-4.5); LYMPH % 18.1 % (10-50.0)
[2017-07-01 18:07] LABS: URINE SQUAMOUS CELLS TNTC #/hpf (0-5)
[2017-07-01 18:25] LABS: NEUTROPHILS 78 % (42-76)
[2017-07-01 20:36] VITALS: BP 120/74
--- NOTE | 2017-07-01 21:06 | HISTORY AND PHYSICAL REPORT ---
Demographics: Admit date: 07/01/17 Chief complaint: flank pain PRIMARY DIAGNOSIS: FLANK PAIN, NAUSEA Allergies: Coded Allergies: metoclopramide (From REGLAN) (Severe, I-RASH 04/02/16) NSAIDS (Non-Steroidal Anti-Inflamma (Mild, 04/02/16) Penicillins (Mild, 04/02/16) Sulfa (Sulfonamide Antibiotics) (Mild, 04/02/16) Tetracyclines (Mild, 04/02/16) codeine (Mild, 04/02/16) ketorolac (From TORADOL) (Mild, 04/02/16) naproxen (Mild, 04/02/16) prochlorperazine (From COMPAZINE) (Mild, 04/02/16) rofecoxib (From VIOXX) (Mild, 04/02/16) History of present illness: History of present illness: e patient complains of RIGHT sided flank pain that began today. She has had nausea and vomiting. Denies abdominal pain or diarrhea. Recent upper respiratory infection, otherwise has not been ill. She has chronic back pain for years, but this is distinctly different. Denies history of kidney stones.this fronm ed record and pt with progressive rt flank pain with no hematuria- pt was treated in the ed but had persistant vomiting and pain and abn labs and was admitted for pain meds and abx with ivf Past medical history: Family HX Family Hx Insignificant Yes Immunization HX DT/Tetanus 5-10 Years Ago Flu [id number] Pneumonia Unknown TB Test in last year No General CAD? No Angina: No [place]: Yes Hypertension? Yes Hyperlipidemia? Yes CHF? No DVT? Yes PE? No COPD? Yes Asthma? Yes Anemia? No GERD? No Gastric ulcers? No GI Bleed? No Hernia? Yes Thyroid Problems? No Hypothyroidism? No CVA? No Seizures? No Diabetes? No Insulin Dependent: No Insulin Pump: No Home FSBS? No Renal Insuffiency? No UTI? Yes Stones? Yes BPH? No GB Disease: Yes Nephritic Syndrome? No Asplenia? No Hepatitis? No Sickle Cell Disease? No Arthritis? No Migraines? No Cataracts? No Glaucoma? No MRSA? No HIV? No TB? No Anxiety? Yes Depression? Yes Cancer? No More? Yes Additional hx: ANTIPHOSPHOLIPID ANTIBODIES PANCREATITIS Past Surgical HX Previous Surgery?Y CHOLECTOMY EPTOPIC PREG HYSTERECTOMY FASCIOTOMY T&A VEIN GRAFT HEART CATH SHUNT PLACED VEIN GRAFT Current home meds: Reported Medications ALBUTEROL (Proventil Hfa Inhaler) 2 PUFF IH Q6H PRN #1 CAN Lisinopril 10 MG PO DAILY #30 TAB Carvedilol (Carvedilol 12.5MG) 12.5 MG PO BID Gabapentin (Neurontin) 600 MG OR TID Potassium Chloride (K-Dur) 20 MEQ PO DAILYP PRN SUPPLEMENT #30 Clonazepam (Clonazepam 0.5MG) 0.5 MG PO QID Ondansetron (Zofran Odt) 8 MG PO WARFARIN SOD (Coumadin) 3 MG PO DAILY OXYCODONE HCL/ACETAMINOPHEN (Percocet 10-325 MG Tablet) 1 TAB PO TID LIPASE/PROTEASE/AMYLASE (Creon Dr 12,000 Units Capsule) 2 ECC PO ACHS Simvastatin (Simvastatin 40MG Tab) 80 MG PO QHS Aspirin (Aspi-Cor) 81 MG PO DAILY Pantoprazole Sodium (Protonix 40MG TAB) 40 MG PO DAILY Promethazine Hydrochloride (Phenergan 25MG Tab) 25 MG PO Q6HP PRN N/V ERGOCALCIFEROL (VITAMIN D2) (Vitamin D2) 50,000 IUNITS PO WEEKLY #4 Methocarbamol 750 MG PO TID #90 Social Hx: Smoking HX Tobacco Yes Type Cigarettes Packs/day N/A Are you/the child exposed to second-hand smoke: No Alcohol Alcohol: No Hx of Drug Use Drug Use? No Patien't marital status is Patient's support system is good Review of systems: Constitutional see HPI, weakness. No: fever. Eyes No: drainage. Ears, Nose, Mouth, Throat No ear discharge, No epistaxis, No throat pain Respiratory No: cough, shortness of breath, wheezing. Cardiovascular No chest pain, No palpitations, No syncope Gastrointestinal/Abdominal see HPI, abdominal pain, No diarrhea, nausea, poor appetite, poor fluid intake, vomiting Genitourinary see HPI. No: dysuria, frequency, hesitancy, hematuria. Musculoskeletal see HPI, other. No: back pain, joint pain, joint swelling, neck pain. Skin No: rash. Neurological No: headache, seizure disorder. Psychiatric No: depressed. Exam: Lab data for last 24 hours: Laboratory Tests 07/01/171749: Amylase 28, Lipase 81 07/01/171749: Sodium 136, Potassium 4.0, Chloride 103, Carbon Dioxide 24, BUN 22 H, Creatinine 1.5 H, Estimated Creat Clear 64, Estimated GFR (MDRD) 37 L, Glucose 153 H, Calcium 9.1, Total Bilirubin 0.4, AST 10 L, ALT 19, Alkaline Phosphatase 131 H, Total Protein 8.2, Albumin 3.8, Globulin 4.4 H, Albumin/ Globulin Ratio 0.9 L, PT 11.2, INR 1.04, WBC 15.2 H, RBC 5.24, Hgb 16.0, Hct 47.5 H, MCV 90.7, RDW 14.6, Plt Count 345, MPV 7.3 L, Gran % 74.5, Gran # 11.3 H, Total Counted 100, Lymphocytes % 18.1, Monocytes % 5.6, Eosinophils % 1.3, Basophils % 0.4, Neutrophils 78 H, Lymphocytes (Manual) 15, Lymphocytes # 2.8, Monocytes (Manual) 5, Monocytes # 0.9, Eosinophils # 0.2, Eosinophils # (Manual) 2, Basophils # 0.1, Platelet Estimate NORMAL, PUBS MCHC 34.0, MCH 30.8 07/01/171739: Urine Color DK YELLOW, Urine Appearance SL CLOUDY, Urine pH 5.0, Ur Specific [place] >= 1.030, Urine Protein 1+ H, Urine Ketones NEGATIVE, Urine Blood NEGATIVE, Urine Nitrate NEGATIVE, Urine Bilirubin 1+ H, Urine Urobilinogen 1.0, Ur Leukocyte Esterase NEGATIVE, Urine RBC 3-5, Urine WBC 3-5, Ur Squamous Epith Cells TNTC, Urine Bacteria 2+, Hyaline Casts 5-10, Urine Mucus 1+, Urine Glucose NEGATIVE Microbiology 07/01 1740 URINE CC: Urine Culture - RECD Admission vital signs: 1ST Vital Signs Result Date Time Pulse Ox 95 07/01 1719 B/P 120/72 07/01 1719 Temp 98.0 07/01 1719 Pulse 83 07/01 1719 Resp 20 07/01 1719 O2 Delivery ROOM AIR 07/01 2036 Exam General appearance: active Eyes: anicteric, PERRLA ENT: dry mucous membranes Neck: no JVD Cardiovascular: regular rate & rhythm, murmur Respiratory: clear to auscultation, no respiratory distress ABD: soft, abnormal bowel sounds, tenderness Genitourinary: no dysuria, no hematuria Extremities: moves all Musculoskeletal: equal muscle strength Skin: dry 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 Right flank pain 2. Vomiting 3. Renal insufficiency 4. Leukocytosis Plan: will hydrate and iv abx and pain meds at 0504
[2017-07-01 21:30] VITALS: BP 118/76
[2017-07-02] VITALS (7 sets, daily range): BP systolic 101–128; BP diastolic 61–85
--- NOTE | 2017-07-02 06:34 | RADIOLOGY REPORT PS360 ---
CHEST(2 VIEWS-NOT PORTABLE) HISTORY: SOA ORDERING PHYSICIAN: David Harrison MD PATIENT AGE: 51 years COMPARISON: 10/30/2016 FINDINGS: The cardiomediastinal silhouette and pulmonary vascularity are within normal limits. The lungs are clear without infiltrates, suspicious nodules, or pleural effusions. No acute bony abnormalities. IMPRESSION: No change with no acute finding
[2017-07-02 06:58] LABS: LYMPH # 2.2 K/mm3 (0.7-4.5); LYMPH % 16.2 % (10-50.0)
--- NOTE | 2017-07-02 07:22 | RADIOLOGY REPORT PS360 ---
CT ABD PELVIS W/O CONTRAST CLINICAL INDICATION: Right flank pain FLANK PAIN ORDERING PHYSICIAN: David Harrison MD PATIENT AGE: 51 years COMPARISON: 05/29/2017 TECHNIQUE: Axial images obtained with sagittal and coronal reformats. PROCEDURE: Oral Contrast: None IV Contrast: None . FINDINGS: Lung bases are clear. There is pneumobilia. No focal liver lesion. Prior cholecystectomy. The spleen, adrenal glands, and pancreas are unremarkable. No renal calculi or hydronephrosis. No ureteral calculi. There is some cortical scarring involving the left kidney. The urinary bladder is decompressed. No obvious stone. Unremarkable appendix. No evidence of intestinal obstruction, free air, or diverticulitis. Prior hysterectomy. There is a tiny umbilical hernia containing fat. No obvious pelvic mass. No acute bony anomalies. Postsurgical changes in the left groin with small bilateral inguinal lymph nodes which appear stable IMPRESSION: 1. No change with no acute finding. 2. Status post cholecystectomy with pneumobilia as before 3. Other nonacute findings as described above
[2017-07-02 07:52] LABS: HEMOGLOBIN 13.9 g/dL (12.2-16.2)
--- NOTE | 2017-07-02 08:33 | ACUTE CARE PROGRESS NOTE (QUA) ---
Progress Notes Subjective Date 07/02/17 Time 0831 Note still with pain Patient/family reports: pain Nursing reports: no complaints Objective Findings Last VS-Temp:97.9 B/P:109/73 Pulse:81 Resp:20 SaO2:93 ROOM AIR Last weight lbs:200 oz:0 K.720 Method:Floor Scales Exam General appearance: alert, awake Eyes: anicteric, PERRLA ENT: dry mucous membranes Neck: no JVD Cardiovascular: regular rate & rhythm Respiratory: no respiratory distress ABD: soft Genitourinary: no hematuria Extremities: moves all Musculoskeletal: equal muscle strength Skin: dry Neuro: alert, still photographer II-XII nml as tested Reviewed: allergies, medications, vital signs, lab results, radiology report Assessment/Plan Problem List 1. Right flank pain 2. Vomiting 3. Renal insufficiency 4. Leukocytosis Patient condition Stable Plan: order additional tests This inpt stay is expected to cross 2 MNs from start of care Yes Comments: pt with persistant rt flank pain Antibiotic Stewardship (2) Current Culture Results Microbiology 07/01 1740 URINE CC: Urine Culture - RES at 0833
--- NOTE | 2017-07-02 08:33 | ACUTE CARE PROGRESS NOTE (QUA) ---
Progress Notes Subjective Date 07/02/17 Time 0831 Note still with pain Patient/family reports: pain Nursing reports: no complaints Objective Findings Last VS-Temp:97.9 B/P:109/73 Pulse:81 Resp:20 SaO2:93 ROOM AIR Last weight lbs:200 oz:0 K.720 Method:Floor Scales Exam General appearance: alert, awake Eyes: anicteric, PERRLA ENT: dry mucous membranes Neck: no JVD Cardiovascular: regular rate & rhythm Respiratory: no respiratory distress ABD: soft Genitourinary: no hematuria Extremities: moves all Musculoskeletal: equal muscle strength Skin: dry Neuro: alert, internet consultant II-XII nml as tested Reviewed: allergies, medications, vital signs, lab results, radiology report Assessment/Plan Problem List 1. Right flank pain 2. Vomiting 3. Renal insufficiency 4. Leukocytosis Patient condition Stable Plan: order additional tests This inpt stay is expected to cross 2 MNs from start of care Yes Comments: pt with persistant rt flank pain Antibiotic Stewardship (2) Current Culture Results Microbiology 07/01 1740 URINE CC: Urine Culture - RES at 0833
--- NOTE | 2017-07-02 09:53 | PHARMACY CLINIC NOTE ---
Patient Demographics Patient Demographics Admission date: 07/01/17 Date: 07/02/17 Time: 09 Allergies Coded Allergies: metoclopramide (From REGLAN) (Severe, I-RASH 04/02/16) NSAIDS (Non-Steroidal Anti-Inflamma (Mild, 04/02/16) Penicillins (Mild, 04/02/16) Sulfa (Sulfonamide Antibiotics) (Mild, 04/02/16) Tetracyclines (Mild, 04/02/16) codeine (Mild, 04/02/16) ketorolac (From TORADOL) (Mild, 04/02/16) naproxen (Mild, 04/02/16) prochlorperazine (From COMPAZINE) (Mild, 04/02/16) rofecoxib (From VIOXX) (Mild, 04/02/16) HEIGHT- FT: 5 IN: 8.00 K.720 VTE General Information Labs: Laboratory Tests 07/02 07/01 0625 1750 Coagulation PT (9.4 - 11.8 SECONDS) 11.2 INR (0.9 - 1.1) 1.04 Hematology Hgb (12.2 - 16.2 g/dL) 13.9 16.0 Hct (37.0 - 47.0 %) 42.4 47.5 H Plt Count (142 - 424 K/mm3) 178 345 Disclaimer The following section includes nursing documentation that has been pulled in for pharmacy review. Patient's VTE score: 1 Patient's VTE Risk: VERY LOW RISK Clinical trial participant? No VTE prophylaxis NQF [id number] VTE prophylaxis ordered? Yes Type of prophylaxis/treatment: MARCELLO (AND WARFARIN (INR=1.04)) at 0953
--- NOTE | 2017-07-02 11:30 | RADIOLOGY REPORT PS360 ---
CT THORACIC SPINE W/O CONTRAST INDICATION: Thoracic spine pain mostly on the right T-SPINE PAIN ORDERING PHYSICIAN: David Harrison MD PATIENT AGE: 51 years COMPARISON: None TECHNIQUE: Axial images are obtained without contrast. Sagittal and coronal reformatted images are reviewed as well. FINDINGS: No fracture or dislocation. No lytic or blastic change. There is mild multilevel spondylosis of the thoracic spine with mild degenerative disc disease and minimal endplate hypertrophic changes. No canal stenosis. No lytic or blastic change. No paraspinal mass. IMPRESSION: Mild thoracic spondylosis, no acute finding
[2017-07-03 04:25] VITALS: BP 117/59
[2017-07-03 06:08] LABS: LYMPH # 1.8 K/mm3 (0.7-4.5); LYMPH % 11.2 % (10-50.0)
[2017-07-03 06:09] LABS: HEMOGLOBIN 11.9 g/dL (12.2-16.2)
--- NOTE | 2017-07-03 06:58 | ACUTE CARE PROGRESS NOTE (QUA) ---
Progress Notes Subjective Date 07/03/17 Time 0651 Note feels better Patient/family reports: feeling better Nursing reports: no complaints Objective Findings Last VS-Temp:98.5 B/P:117/59 Pulse:90 Resp:20 SaO2:94 ROOM AIR Last weight lbs:200 oz:0 K.720 Method:Floor Scales Exam General appearance: alert Eyes: anicteric, PERRLA ENT: dry mucous membranes Neck: no JVD Cardiovascular: regular rate & rhythm Respiratory: no respiratory distress ABD: no rebound, no tenderness Genitourinary: no hematuria Extremities: moves all Musculoskeletal: equal muscle strength Skin: dry Neuro: alert, application dba II-XII nml as tested Reviewed: allergies, medications, vital signs, lab results, radiology report Assessment/Plan Problem List 1. Right flank pain 2. Vomiting 3. Renal insufficiency 4. Leukocytosis Patient condition Improving Plan: initiate discharge plan This inpt stay is expected to cross 2 MNs from start of care Yes Antibiotic Stewardship (2) Current Culture Results Microbiology 07/02 914 BLOOD: Anaerobic Blood Culture - RECD 07/02 914 BLOOD: Aerobic Blood Culture - RECD 07/01 1740 URINE CC: Urine Culture - COMP at 0657
--- NOTE | 2017-07-03 06:58 | ACUTE CARE PROGRESS NOTE (QUA) ---
Progress Notes Subjective Date 07/03/17 Time 0651 Note feels better Patient/family reports: feeling better Nursing reports: no complaints Objective Findings Last VS-Temp:98.5 B/P:117/59 Pulse:90 Resp:20 SaO2:94 ROOM AIR Last weight lbs:200 oz:0 K.720 Method:Floor Scales Exam General appearance: alert Eyes: anicteric, PERRLA ENT: dry mucous membranes Neck: no JVD Cardiovascular: regular rate & rhythm Respiratory: no respiratory distress ABD: no rebound, no tenderness Genitourinary: no hematuria Extremities: moves all Musculoskeletal: equal muscle strength Skin: dry Neuro: alert, arbitrator II-XII nml as tested Reviewed: allergies, medications, vital signs, lab results, radiology report Assessment/Plan Problem List 1. Right flank pain 2. Vomiting 3. Renal insufficiency 4. Leukocytosis Patient condition Improving Plan: initiate discharge plan This inpt stay is expected to cross 2 MNs from start of care Yes Antibiotic Stewardship (2) Current Culture Results Microbiology 07/02 914 BLOOD: Anaerobic Blood Culture - RECD 07/02 914 BLOOD: Aerobic Blood Culture - RECD 07/01 1740 URINE CC: Urine Culture - COMP at 0657
[2017-07-03 07:07] LABS: NEUTROPHILS 86 % (42-76)
--- NOTE | 2017-07-03 07:09 | DISCHARGE SUMMARY STANDARD ---
Demographics Admit date: 07/01/17 Discharge date: 07/03/17 History of present illness History of present illness e patient complains of RIGHT sided flank pain that began today. She has had nausea and vomiting. Denies abdominal pain or diarrhea. Recent upper respiratory infection, otherwise has not been ill. She has chronic back pain for years, but this is distinctly different. Denies history of kidney stones.this fronm ed record and pt with progressive rt flank pain with no hematuria- pt was treated in the ed but had persistant vomiting and pain and abn labs and was admitted for pain meds and abx with ivf Hospital Course Hospital Course: pt with slow but steady improvement on abx and ivf with pain meds - she has pain rt flank area improved but still present - no exact etiology and may be multifactorial but feel need to finish abx and have op follow up Discharge diagnoses Problem List 1. Right flank pain 2. Vomiting 3. Renal insufficiency 4. Leukocytosis Medications Medications: Discharge meds are as noted. Follow up Follow up in office in: 12 DAYS with: David Harrison MD at 0709
[2017-07-03] MEDS ORDERED: LEVAQUIN500 MG PO (07:15)
[2017-07-03] MEDS ORDERED: ZOFRAN4 MG PO (07:15)
[2017-07-03 07:44] VITALS: BP 128/67
[2017-07-03 09:15] VITALS: BP 128/67
== END 2017-07-03 09:10 | disposition home or self-care (01) ==
LOC: ER 17:14 → 2ND 20:12
PROVIDERS: Emergency Medicine
DX: R10.9 Unspecified abdominal pain (principal); R11.2 Nausea with vomiting, unspecified; I10 Essential (primary) hypertension; J44.9 Chronic obstructive pulmonary disease, unspecified; I82.509 Chronic embolism and thrombosis of unspecified deep veins of unspecified lower extremity; Z79.01 Long term (current) use of anticoagulants
CPT/HCPCS: G0378; J2405

== ENCOUNTER → 2017-07-20 | Outpatient (CLI) | payer BC ==
[2017-07-20 14:10] LABS: AMPHETAMINES/METAMPHETAMINES NEGATIVE ng/mL (<1000)
[2017-07-28 07:39] LABS: Alprazolam Negative (Cutoff=100); Benzodiazepines Negative ng/mL (Cutoff=100); Clonazepam Negative (Cutoff=100); Flurazepam Negative (Cutoff=100); Lorazepam Negative (Cutoff=100); Midazolam Negative (Cutoff=100); Temazepam Negative (Cutoff=100); Triazolam Negative (Cutoff=100)
== END ==
LOC: LAB 11:49
PROVIDERS: Emergency Medicine
DX: Z79.899 Other long term (current) drug therapy (principal)
CPT/HCPCS: G0480

== ENCOUNTER → 2017-09-16 | Outpatient (CLI) | payer BC ==
[2017-09-16 16:12] LABS: AMPHETAMINES/METAMPHETAMINES NEGATIVE ng/mL (<1000)
[2017-09-22 14:40] LABS: Alprazolam Negative (Cutoff=100); Benzodiazepines Negative ng/mL (Cutoff=100); Clonazepam Negative (Cutoff=100); Flurazepam Negative (Cutoff=100); Lorazepam Negative (Cutoff=100); Midazolam Negative (Cutoff=100); Temazepam Negative (Cutoff=100); Triazolam Negative (Cutoff=100)
== END ==
LOC: LAB 13:29
PROVIDERS: Emergency Medicine
DX: Z79.899 Other long term (current) drug therapy (principal)
CPT/HCPCS: G0480